=== PATIENT | female | born 1995 | race Caucasian/White ===

== ENCOUNTER 2017-12-15 20:00 | Emergency (ER) | payer BC ==
--- NOTE | 2017-12-15 20:47 | EDM.PDOCBH ---
ED HPI GENERAL MEDICAL PROBLEM - General Chief Complaint: Behavioral/Psych Stated Complaint: MENTAL HEALTH CHECK Time Seen by Provider: 12/15/17 20:06 Source of Information: Reports: Patient History Limitations: Reports: No Limitations - History of Present Illness INITIAL COMMENTS - FREE TEXT/NARRATIVE: Situational depression. Details documented in dictation. Onset: Today - Related Data Allergies Allergy/AdvReac Type Severity Reaction Status Date / Time aspartame Allergy Rash Verified 12/15/17 20:06 Home Meds: Home Meds Multivitamin. 1 tab PO DAILY 12/15/17 [History] Past Medical History - Past Health History Medical/Surgical History: Denies Medical/Surgical History Social & Family History - Tobacco Use Smoking Status *Q: Never Smoker ED ROS GENERAL - Review of Systems Review Of Systems: ROS reveals no pertinent complaints other than HPI. Constitutional: Reports: No Symptoms HEENT: Reports: No Symptoms Respiratory: Reports: No Symptoms Cardiovascular: Reports: No Symptoms Endocrine: Reports: No Symptoms GI/Abdominal: Reports: No Symptoms : Reports: No Symptoms Musculoskeletal: Reports: No Symptoms Skin: Reports: No Symptoms Neurological: Reports: No Symptoms Psychiatric: Reports: No Symptoms, Depression Hematologic/Lymphatic: Reports: No Symptoms Immunologic: Reports: No Symptoms ED EXAM, BEHAVIORAL HEALTH - Physical Exam Exam: See Below COURSE, BEHAVIORAL HEALTH COMP - Course Vital Signs: Last Vital Signs Temp 37.8 C 12/15/17 20:07 Pulse 117 H 12/15/17 20:07 Resp BP 138/99 H 12/15/17 20:07 Pulse Ox 97 12/15/17 20:07 Departure - Departure Time of Disposition: 20:45 Disposition: Home, Self-Care 01 Condition: Fair Clinical Impression: Situational depression - Discharge Information *PRESCRIPTION DRUG MONITORING PROGRAM REVIEWED*: Not Applicable *COPY OF PRESCRIPTION DRUG MONITORING REPORT IN PATIENT RANDELL: Not Applicable Instructions: Coping With Depression, Teen Referrals: PCP,None [Primary Care Provider] - Additional Instructions: Followup with [facility] - as arranged.
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
== END 2017-12-16 05:43 | disposition home or self-care (01) ==
LOC: JD.ED 20:00
DX: F32.9 Major depressive disorder, single episode, unspecified (principal); Z88.8 Allergy status to other drugs, medicaments and biological substances
CPT/HCPCS: 99284

== ENCOUNTER 2019-09-01 05:05 | Emergency (ER) | payer BC, MEDICAID ==
[2019-09-01] MEDS ORDERED: Lidocaine 1% 10 ML MDV ONE (05:35)
[2019-09-01] MEDS ORDERED: Lidocaine 1% 10 ML MDV INJECT ONE (05:37)
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
[2019-09-01] MEDS ORDERED: Ondansetron 4 MG Tab.DIS PO ONE (07:11)
[2019-09-01] MEDS ORDERED: Ibuprofen 600 MG Tab PO ONE (07:11)
== END 2019-09-01 07:25 | disposition home or self-care (01) ==
LOC: JD.ED 05:05
DX: S51.812A Laceration without foreign body of left forearm, initial encounter (principal); S41.112A Laceration without foreign body of left upper arm, initial encounter; R45.4 Irritability and anger; F80.81 Childhood onset fluency disorder; F41.9 Anxiety disorder, unspecified; Z88.8 Allergy status to other drugs, medicaments and biological substances; Z79.899 Other long term (current) drug therapy; X78.9XXA Intentional self-harm by unspecified sharp object, initial encounter
CPT/HCPCS: 12005; 99284; A9270; J2001; 99283